=== PATIENT | male | born 1985 | race Two or more races ===

== ENCOUNTER 2019-05-25 13:57 | Emergency (ER) | payer MEDICAID ==
[~2019-05-25] VITALS: Ht 175.3 cm; Wt 81.6 kg
--- NOTE | 2019-05-25 14:06 | NUR ---
ED Nurse Note: Pt ambulated to ER d/t head injury. Per pt he was using one of those gym weights when it accidentally "slammed" on his head. Pt is AOx4, VSS, on RA. Pt denies feeling of nausea; (-) vomiting. Placed on bed. SUSHANT Gibbons on bedside.
[2019-05-25 14:10] VITALS: BP 122/66
--- NOTE | 2019-05-25 14:20 | NUR ---
ED Nurse Note: Pt stated, "Now i feel a little nauseous". Noted affected area with minimal redness; skin intact.
--- NOTE | 2019-05-25 14:20 | NUR ---
ED Nurse Note: Pt went on CT, accompanied by tech.
--- NOTE | 2019-05-25 14:29 | NUR ---
ED Nurse Note: Pt returned from CT.
--- NOTE | 2019-05-25 14:56 | Diagnostic Imaging Report ---
Indication: Headache Technique: Contiguous 5 mm thick transaxial imaging of the head obtained in a Siemens Sensation [address] scanner. Soft tissue and bone windows generated. Automatic Exposure Control was utilized. Total Dose length Product (DLP): [address] Dose Index Volume (CTDIvol): 62.7 mGy Comparison: none Findings: The size and configuration of the cortical sulci, basal cisterns, and ventricles are within normal limits for age. There is no mass effect, midline shift, or edema identified. There is no evidence of acute hemorrhage or abnormal intra-axial or extra-axial fluid collections. The bones and soft tissues are unremarkable. Impression: No mass effect, edema or acute bleed. [facility] has communicated the preliminary results to the Emergency Department. Their findings are largely concordant with this report. The CT scanner at [facility] is accredited by the [employer] and the scans are performed using dose optimization techniques as appropriate to a performed exam including Automatic Exposure control.
--- NOTE | 2019-05-25 15:05 | Emergency Room Report ---
History of Present Illness General Chief Complaint: Head Injury Source: Patient Present Illness HPI 33-year-old male with no segment past medical history here complaining of a head injury while working out at the gym earlier today 2 hours prior to arrival. Patient reports that he was laying on the floor and lifting weights as he was about to get up patient next to him was also lifting weights and the weight was dropped on right parietal lobe. Patient did not lose consciousness. Complains of minimal fatigue and headache and dizziness. Denies nausea vomiting. Has not yet taken medication for symptom relief. Neurovascularly intact. Has normal gait. Denies all other injuries. Allergies: Coded Allergies: No Known Allergies (Unverified , 05/25/19) Patient History Past Medical History: see triage record Past Surgical History: unable to obtain Pertinent Family History: none Immunizations: UTD Reviewed Nursing Documentation: PMH: Agreed; PSxH: Agreed Nursing Documentation-PMH Past Medical History: No Stated History Review of Systems All Other Systems: negative except mentioned in HPI Physical Exam Vital Signs Date Time Temp Pulse Resp B/P (MAP) Pulse Ox O2 Delivery O2 Flow Rate FiO2 05/25/19 14:03 98.6 91 18 122/66 (84) 99 Room Air Sp02 EP Interpretation: reviewed, normal General Appearance: no apparent distress, alert, GCS 15, non-toxic Head: normocephalic, atraumatic, other - Small contusion noted right posterior parietal lobe Eyes: bilateral eye normal inspection, bilateral eye PERRL ENT: hearing grossly normal, normal pharynx, no angioedema, normal voice Respiratory: chest non-tender, lungs clear, normal breath sounds, no rhonchi, no respiratory distress, no retraction, no wheezing, speaking full sentences Gastrointestinal: normal bowel sounds, non tender, soft, non-distended, no guarding, no rebound Rectal: deferred Genitourinary: no CVA tenderness Musculoskeletal: back normal, normal range of motion, digits/nails normal Neurologic: alert, motor strength/tone normal, 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 Hunt Diagnostic Impression: Primary Impression: Head contusion ER Course 33-year-old male with no segment past medical history here complaining of a head injury while working out at the gym earlier today 2 hours prior to arrival. Patient reports that he was laying on the floor and lifting weights as he was about to get up patient next to him was also lifting weights and the weight was dropped on right parietal lobe. Patient did not lose consciousness. Complains of minimal fatigue and headache and dizziness. Denies nausea vomiting. Has not yet taken medication for symptom relief. Neurovascularly intact. Has normal gait. Denies all other injuries. Ddx considered but are not limited to: cerebral hematoma, concussion, skull fracture, head contusion Vital signs: are WNL, pt. is afebrile H&PE are most consistent with: Head contusion ORDERS: head CT no contrast, Motrin ED INTERVENTIONS: None required at this time. DISCHARGE: At this time pt. is stable for d/c to home. Will provide printed patient care instructions, and any necessary prescriptions. Care plan and follow up instructions have been discussed with the patient prior to discharge. Patient take medication as directed, avoid strenuous physical activity, have mental rest, if worsening symptoms return to the emergency room CT/MRI/US Diagnostic Results CT/MRI/US Diagnostic Results : Imaging Test Ordered: Head CT no contrast Impression CT HEAD Without Contrast: Unremarkable head CT. No acute intracranial abnormality. No skull fracture. Last Vital Signs Date Time Temp Pulse Resp B/P (MAP) Pulse Ox O2 Delivery O2 Flow Rate FiO2 05/25/19 14:10 98.6 72 18 122/66 99 Room Air Disposition: HOME, SELF-CARE Condition: Stable Referrals: NOT CHOSEN IPA/MD,REFERRING (PCP) Patient Instructions: Facial or Scalp Contusion, [id number] Additional Instructions: Take medication as directed, follow with primary care provider, increase oral hydration, have mental rest. Avoid drinking alcohol. If worsening symptoms return to the emergency room Edwige Cabral May 25, 2019 15:05
[2019-05-25] MEDS ORDERED: IBUPROFEN600 MG ORAL (15:06)
[2019-05-25 15:10] VITALS: BP 122/66
--- NOTE | 2019-05-25 15:10 | NUR ---
ER DISCHARGE NOTE: Pt is cleared to be discharged per ERMD, pt is AOx4, VSS, on RA. pt was given dc and prescription instructions, pt was able to verbalize understanding, pt id band removed. pt is able to ambulate with steady gait. pt took all belongings.
== END 2019-05-25 15:10 | disposition home or self-care (01) ==
LOC: EMR 14:20
DX: S00.93XA Contusion of unspecified part of head, initial encounter (principal); W22.8XXA Striking against or struck by other objects, initial encounter; Y92.39 Other specified sports and athletic area as the place of occurrence of the external cause
CPT/HCPCS: 70450; Z7502; 99284